=== PATIENT | male | born 1960 | race Caucasian/White ===

== ENCOUNTER 2019-07-06 07:13 | Outpatient (CLI) | payer SELFPAY ==
--- NOTE | 2019-07-06 07:59 | XR_ITS ---
WS: [id number] ABDOMEN: SUPINE FILM HISTORY: HYDROURETERONEPHROSIS COMPARISON: 07/06/2018 Normal bowel gas pattern and osseous structures. Right kidney: No renal or ureteral stone identified. Left kidney: No renal or ureteral stone identified. XR/XR KUB [id number] IMPRESSION: No renal or ureteral calcifications.
== END 2019-07-06 07:14 | disposition home or self-care (01) ==
PROVIDERS: Family Provider Internal Medicine; PCP Internal Medicine; Visit Provider Urology
DX: N13.30 Unspecified hydronephrosis (principal)
CPT/HCPCS: 74018; 81001

== ENCOUNTER → 2021-01-10 12:45 | Outpatient (BNVA) | payer SELFPAY | PROVIDERS: Family Provider Internal Medicine; PCP Internal Medicine; Visit Provider Emergency Medicine | DX: Z20.822 Contact with and (suspected) exposure to COVID-19 (principal) | CPT/HCPCS: 87635 ==

== ENCOUNTER 2021-02-07 12:25 | Outpatient (CLI) | payer SELFPAY ==
--- NOTE | 2021-02-07 12:36 | XR_ITS ---
WS: [id number] PROCEDURE: XR chest 2V* [id number] CLINICAL INFORMATION: SHORTNESS OF BREATH COMPARISON: None. FINDINGS: Heart: Cardiomegaly. Lungs: Moderate chronic emphysematous changes. Chronic granulomatous disease. Prominent fat pad at th e cardiac apex. No acute pulmonary infiltrates. Bones: Normal visualized bony structures. XR/XR chest 2V* [id number] IMPRESSION: 1. Cardiomegaly. 2. Moderate chronic emphysematous changes. No acute pulmonary infiltrates. 3. No focal pneumonia or pleural fluid.
== END 2021-02-07 12:26 | disposition home or self-care (01) ==
PROVIDERS: PCP Internal Medicine; Visit Provider Internal Medicine
DX: R06.02 Shortness of breath (principal); I51.7 Cardiomegaly
CPT/HCPCS: 71046

== ENCOUNTER 2022-07-17 10:36 | Outpatient (CLI) | payer SELFPAY ==
--- NOTE | 2022-07-17 11:13 | XR_ITS ---
WS: [id number] Exam: XR cervical spine 3V* [id number] Date/Time of Exam: 07/17/2022 11:29 AM Reason For Exam: CERVICALGIA No acute fracture or dislocation. There is straightening and reversal of the normal cervical C curve. Anterior osteophytes noted from C4 to C6. Mild facet DJD at all levels. Normal paraspinal soft tissu es. The odontoid is intact. XR/XR cervical spine 3V* [id number] IMPRESSION: 1. No acute fracture or malalignment. Degenerative changes. 2. Straightening and reversal of the normal cervical C curve. 3. Prominent anterior osteophytes at C5 and C6.
== END 2022-07-17 10:37 | disposition home or self-care (01) ==
PROVIDERS: PCP Internal Medicine; Visit Provider Internal Medicine
DX: M54.2 Cervicalgia (principal); M25.78 Osteophyte, vertebrae
CPT/HCPCS: 72040